=== PATIENT | female | born 1960 | race Caucasian/White ===

== ENCOUNTER → 2020-01-17 15:16 | Outpatient (BNVA) | payer BC, SELFPAY | PROVIDERS: Family Provider Nurse Practitioner Family; Visit Provider Family Medicine | DX: Z11.59 Encounter for screening for other viral diseases (principal) | CPT/HCPCS: 87635 ==

== ENCOUNTER 2020-02-19 11:36 | Outpatient (CLI) | payer BC, SELFPAY ==
--- NOTE | 2020-02-19 11:44 | MM_ITS ---
WS: [id number] Exam: [place] [id number] Date/Time of Exam: 02/19/2020 11:53 AM Reason For Exam: SCREENING VIEWS: MLO and CC views both breasts. Comparison made with prior exam of 12/19/2017. Findings: There was no sign of mass, architectural distortion or suspicious calcification in either breast. 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
== END 2020-02-19 11:37 | disposition home or self-care (01) ==
PROVIDERS: PCP Family Medicine; Visit Provider Family Medicine
DX: Z12.31 Encounter for screening mammogram for malignant neoplasm of breast (principal)
CPT/HCPCS: 77067

== ENCOUNTER 2021-06-05 10:57 | Outpatient (CLI) | payer OTHER, SELFPAY ==
--- NOTE | 2021-06-05 11:06 | MM_ITS ---
WS: [id number] BILATERAL DIGITAL SCREENING MAMMOGRAPHY WITH CAD CLINICAL INFORMATION: SCREENING HISTORY: Screening mammogram. No current complaints. COMPARISON: February 19, 2020 TECHNIQUE: Bilateral CC and MLO views. FINDINGS: Scattered fibroglandular densities bilaterally. Tiny punctate calcification RIGHT breast. No suspicio us focal mass, asymmetry, calcifications, or architectural distortion. No evidence of malignancy. MM/[place] [id number] IMPRESSION: BI-RADS: 2-Benign FOLLOW UP: 1 Year Follow-up Recommend return to annual screening mammography.
== END 2021-06-05 10:58 | disposition home or self-care (01) ==
PROVIDERS: PCP Family Medicine; Visit Provider Family Medicine
DX: Z12.31 Encounter for screening mammogram for malignant neoplasm of breast (principal)
CPT/HCPCS: 77067

== ENCOUNTER → 2022-03-11 13:54 | Outpatient (BNVA) | payer OTHER, SELFPAY | PROVIDERS: PCP Family Medicine; Visit Provider Family Medicine | DX: Z00.00 Encounter for general adult medical examination without abnormal findings (principal); E04.9 Nontoxic goiter, unspecified | CPT/HCPCS: 80053; 84443 ==

== ENCOUNTER 2022-07-08 14:42 | Outpatient (CLI) | payer OTHER, SELFPAY ==
--- NOTE | 2022-07-08 14:59 | XR_ITS ---
WS: [id number] XR chest 2V* [id number] REASON FOR EXAM: dyspnea FINDINGS: The heart and the mediastinum are within normal limits. Calcified granulomatous disease in both hemithoraces. No acute/subacute pulmonary parenchymal or pleural abnormality. Mild changes of degenerative spondylosis in the mid and lower thoracic spine. XR/XR chest 2V* [id number] IMPRESSION: No acute/subacute chest abnormality.
== END 2022-07-08 14:43 | disposition home or self-care (01) ==
PROVIDERS: PCP Family Medicine; Visit Provider Family Medicine
DX: R06.00 Dyspnea, unspecified (principal); R07.9 Chest pain, unspecified; R53.83 Other fatigue; Z79.899 Other long term (current) drug therapy
CPT/HCPCS: 71046; 80053; 82607; 83880; 84443; 85025; 85651; 86140

== ENCOUNTER 2022-08-04 14:55 | Outpatient (CLI) | payer OTHER, SELFPAY ==
--- NOTE | 2022-08-04 15:15 | USCV_ITS ---
Sherry Knight Age: 62 Gender: F : 1960 Exam Date: 08/04/2022 15:35 Ordering Phys: Anderson Bojorquez MD Technologist: Jennifer Lowe Exam Location: [facility] – [place] Indication: CP unspecified BP: 130 / 70 HR: 72 Rhythm: Sinus Technical Quality: Adequate MEASUREMENTS (Male / Female) Normal Values 2D ECHO LV Diastolic Diameter PLAX 3.8 cm 4.2 - 5.9 / 3.9 - 5.3 cm LV Systolic Diameter PLAX 2.0 cm IVS Diastolic Thickness 1.0 cm 0.6 - 1.0 / 0.6 - 0.9 cm IVS Systolic Thickness 1.1 cm LVPW Diastolic Thickness 0.8 cm 0.6 - 1.0 / 0.6 - 0.9 cm LVPW Systolic Thickness 2.0 cm LVOT Diameter 2.2 cm LV Ejection Fraction 2D Teich 80.0 % LV Ejection Fraction MOD 2C 70.5 % LV Ejection Fraction 2C AL 71.3 % LA Diameter 2.4 cm LA Width 3.3 cm LA Height 4.4 cm RA Width 2.4 cm RA Height 4.2 cm Aorta at Sinotubular Diameter 2.9 cm IVC Diameter 1.5 cm M-MODE Aortic Annulus Diameter 2.9 cm LA Ao Ratio MM 0.8 MV E Point Septal Separation 0.2 cm DOPPLER AV Peak Velocity 137.0 cm/s LVOT Peak Velocity 141.0 cm/s AV Area Cont Eq vti 4.0 cm squared AV Area Cont Eq pk 3.9 cm squared MV Peak Velocity 94.0 cm/s MV Area PHT 3.3 cm squared Mitral E to A Ratio 1.1 MV E' Velocity 49.0 cm/s Mitral E to MV E' Ratio 9.7 Mitral E to LV E' Lateral Ratio 7.4 Mitral E to LV E' Septal Ratio 14.2 TR Peak Velocity 155.0 cm/s TR Peak Gradient 9.6 mmHg Right Atrial Pressure 5.0 mmHg Pulmonary Artery Systolic Pressu 14.6 mmHg PV Peak Velocity 84.0 cm/s RV Acceleration Time 0.1 s RV Ejection Time 0.4 s RV AcT/ET 0.4 FINDINGS Left Ventricle Normal left ventricular size and systolic function, EF 58 %. No regional wall motion abnormalities. Right Ventricle The right ventricle is normal in size and function. Right Atrium The right atrium is normal in size. Left Atrium The left atrium is normal in size. Mitral Valve Trace to mild mitral valve regurgitation. Aortic Valve Thickened aortic valve. Tricuspid Valve Trace tricuspid valve regurgitation. Pulmonic Valve Structurally normal pulmonic valve. Pericardium Normal pericardium without effusion. Aorta Normal ascending aorta dimension. IVC The inferior vena cava appears normal. CONCLUSIONS Normal left ventricular size and systolic function, EF 58 %. No regional wall motion abnormalities. Trace to mild mitral valve regurgitation. Thickened aortic valve. Trace tricuspid valve regurgitation. Estimated pulmonary artery peak systolic pressure within normal limits There is no pericardial effusion. Pulmonary artery systolic pressure is within normal limits. No similar previous studies are available for comparison Dr Obi Humphrey MD [facility] (Electronically Signed) Final Date: 05 Aug 2022 07:23 S
== END 2022-08-04 14:56 | disposition home or self-care (01) ==
LOC: RAD 14:59
PROVIDERS: PCP Family Medicine; Visit Provider Family Medicine
DX: R07.9 Chest pain, unspecified (principal); R06.00 Dyspnea, unspecified; R53.83 Other fatigue; I35.8 Other nonrheumatic aortic valve disorders
CPT/HCPCS: 93306

== ENCOUNTER 2022-09-15 08:46 | Outpatient (CLI) | payer OTHER, SELFPAY ==
--- NOTE | 2022-09-15 | ECG_ITS ---
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 Interpretive Statements NAME OF STUDY: EXERCISE SESTAMIBI STRESS TEST INDICATION: [Chest Pain, ] EXERCISE DATA: The patient was exercised by Khang protocol. Baseline heart rate was 67 beats per minute. Baseline blood pressure was 130/89 millimeters of mercury. Target heart rate was 135 beats per minute. Maximum heart rate achieved was 150 which was 111% of the target heart rate. Maximum blood pressure was 166/91 millimeters of mercury. Total exercise time was 6 minutes. Maximum METs achieved was 7. The reason for ending the test was maximal effort achieved. The patient complained of shortness of breath during the stress test, which then resolved at the end of the test. ELECTROCARDIOGRAM: BASELINE: Showed sinus rhythm, normal axis, no significant ST-T changes at the baseline noted. [] EXERCISE: At the peak exercise level, [] No significant ST-T changes suggestive of ischemia noted. [] RECOVERY: During the recovery period, heart rate dropped appropriately. No significant ST-T changes in the recovery suggestive of ischemia noted. [] CONCLUSION: 1. Exercise capacity is fair 2. Heart rate response was appropriate 3. Blood pressure response was appropriate 4. Symptoms not suggestive of ischemia. 5. Electrocardiogram portion of the stress test was not suggestive of ischemia. 6. Nuclear scan will be documented separately. Electronically Signed On 09-24-2022 15:20:05 CDT by Sanchez Christianson M.D. [id number]
[2022-09-15 09:00] VITALS: BMI 27.4
--- NOTE | 2022-09-15 09:04 | NMCV_ITS ---
NM micheal perf SPECT r/s* [id number] Sherry Knight Age: 62 Gender: F : 1960 Exam Date: 09/15/2022 09:51 Ordering Phys: Anderson Bojorquez MD Technologist: MIKE Butcher Exam Location: [facility] Indications: CHEST PAIN STRESS TEST [facility] IMAGE PROTOCOL Rest/Stress 1 Exercise Day Radiopharmaceutical Dose (mCi) Administration Site Administered by Rest: Tc-99m 10.7 IV MIKE Espinal Sestamibi Stress:Tc-99m 32.5 IV MIKE Espinal Sestamibi Rest: 15-Sep-2022 60 Discovery 630 Stress: 09/15/2022 30 Discovery 630 Radiopharmaceutical was injected at 91 % maximum heart rate. Images obtained in supine and prone position. SPECT RESULTS Technical Quality: Excellent Raw Data Analysis: Normal Image Corrections: No attenuation or motion correction applied Summed Stress Score: 1 Summed Rest Score: 0 Summed Difference Score: 1 PERFUSION FINDINGS SPECT images demonstrate homogeneous tracer distribution throughout the myocardium. FUNCTIONAL RESULTS (calculated via Gated SPECT) Stress Image LV EF (%): 82 Stress EDV (mL):67 TID: 0.83 Stress ESV (mL):12 FUNCTIONAL FINDINGS: There is normal left ventricular systolic function. IMPRESSIONS 1. Normal myocardial perfusion imaging with no evidence of ischemia. 2. LV systolic function is normal. Sanchez Christianson MD (Electronically Signed) Final Date: 15 September 2022 12:47 S
[2022-09-15 11:00] VITALS: BP 142/105; PULSE 84
== END 2022-09-15 08:47 | disposition home or self-care (01) ==
LOC: CDL 08:47
PROVIDERS: PCP Family Medicine; Visit Provider Family Medicine
DX: R07.9 Chest pain, unspecified (principal)
CPT/HCPCS: 36415; 78452; 93017; A9500

== ENCOUNTER → 2023-09-07 08:56 | Outpatient (BNVA) | payer OTHER, SELFPAY | PROVIDERS: PCP Family Medicine; Visit Provider Family Medicine | DX: F32.A Depression, unspecified (principal); E04.9 Nontoxic goiter, unspecified; E11.9 Type 2 diabetes mellitus without complications; Z79.899 Other long term (current) drug therapy | CPT/HCPCS: 80053; 80061; 84443 ==

== ENCOUNTER 2023-10-14 10:00 | Outpatient (CLI) | payer OTHER, SELFPAY ==
--- NOTE | 2023-10-14 10:00 | MM_ITS ---
WS: [id number] BILATERAL 3D TOMOSYNTHESIS DIGITAL SCREENING MAMMOGRAPHY WITH CAD CLINICAL INFORMATION: screening HISTORY: Screening mammogram. No current complaints. COMPARISON: 06/05/2021 TECHNIQUE: Bilateral CC and MLO views. FINDINGS: Scattered fibroglandular densities bilaterally. No suspicious focal mass, asymmetry, calcifications, or architectural distortion. No evidence of malignancy. MM/[place] [id number] IMPRESSION: BI-RADS: 1-Negative FOLLOW UP: 1 Year Follow-up Recommend return to annual screening mammography.
== END 2023-10-14 10:01 | disposition home or self-care (01) ==
PROVIDERS: PCP Family Medicine; Visit Provider Family Medicine
DX: Z12.31 Encounter for screening mammogram for malignant neoplasm of breast (principal); R92.323 Mammographic fibroglandular density, bilateral breasts
CPT/HCPCS: 77063; 77067

== ENCOUNTER → 2024-12-24 15:38 | Outpatient (BNVA) | payer OTHER, SELFPAY | PROVIDERS: PCP Family Medicine; Visit Provider Family Medicine | DX: E04.9 Nontoxic goiter, unspecified (principal); Z00.00 Encounter for general adult medical examination without abnormal findings | CPT/HCPCS: 80053; 80061; 84443 ==

== ENCOUNTER → 2024-12-28 08:14 | Outpatient (BNVA) | payer OTHER, SELFPAY | PROVIDERS: PCP Family Medicine; Visit Provider Family Medicine | DX: Z00.00 Encounter for general adult medical examination without abnormal findings (principal); E04.9 Nontoxic goiter, unspecified | CPT/HCPCS: 80053; 80061; 84443 ==